=== PATIENT | female | born 1990 | race Caucasian/White ===

== ENCOUNTER 2019-12-17 07:55 | Emergency (ER) | payer OTHER ==
[~2019-12-17] VITALS: Ht 175.2 cm; Wt 95.3 kg
[2019-12-17] MEDS ORDERED: SEPTDS PO (08:36)
== END 2019-12-17 08:55 | disposition home or self-care (01) ==
LOC: ED 07:55
DX: L30.9 Dermatitis, unspecified (principal); F17.200 Nicotine dependence, unspecified, uncomplicated

== ENCOUNTER 2021-01-19 07:01 | Emergency (ER) | payer OTHER ==
[~2021-01-19] VITALS: Ht 175.2 cm; Wt 104.3 kg
[~2021-01-19 07:01] MED LIST: SEPTDS PO; VIBRAMYCIN100 MG PO
[2021-01-19] MEDS ORDERED: ZITHROMAX250 MG PO (10:08)
== END 2021-01-19 10:10 | disposition home or self-care (01) ==
LOC: ED 07:01
DX: J20.9 Acute bronchitis, unspecified (principal); Z20.822 Contact with and (suspected) exposure to COVID-19; Z79.899 Other long term (current) drug therapy

== ENCOUNTER 2022-04-04 13:40 | Emergency (ER) | payer OTHER ==
[~2022-04-04] VITALS: Ht 175.2 cm; Wt 99.8 kg
[~2022-04-04 13:40] MED LIST changes: +ZITHROMAX250 MG PO
[2022-04-04] MEDS ORDERED: LISINOPRIL10 M1 PO ×2 (14:07→14:22)
[2022-04-04] MEDS ORDERED: ZITHROMAX500 MG PO (14:22)
== END 2022-04-04 14:24 | disposition home or self-care (01) ==
LOC: ED 13:40
DX: J06.9 Acute upper respiratory infection, unspecified (principal); Z79.2 Long term (current) use of antibiotics

== ENCOUNTER 2022-05-22 07:18 | Emergency (ER) | payer OTHER ==
[~2022-05-22 07:18] MED LIST changes: +LISINOPRIL10 M1 PO; +ZITHROMAX500 MG PO
[2022-05-22 07:58] LABS: BILIRUBIN Negative (Negative); BLOOD 2+ (Negative); CLARITY Clear (Clear); COLOR Yellow (Yellow); GLUCOSE Negative (Negative); KETONE Negative (Negative); LEUKO ESTERASE Trace (Negative); NITRITE Negative (Negative); PH 5.5 (4.5-8.0); SPECIFIC GRAVITY 1.015 (1.001-1.030); UROBILINOGEN 0.2 E.U./dl (0.0-1.0)
[2022-05-22 08:08] LABS: BACTERIA 1+; MUCOUS TRACE
[2022-05-22] MEDS ORDERED: PREDNISONE50 MG PO (08:48)
[2022-05-22] MEDS ORDERED: CYCLOBENZAPRINE5 M3 PO (08:48)
== END 2022-05-22 08:54 | disposition home or self-care (01) ==
LOC: ED 07:18
PROVIDERS: Student in an Organized Health Care Education/Training Program
DX: M54.50 Low back pain, unspecified (principal); Z79.899 Other long term (current) drug therapy

== ENCOUNTER 2022-12-25 12:51 | Emergency (ER) | payer OTHER ==
[~2022-12-25] VITALS: Ht 175.2 cm; Wt 106.6 kg
[~2022-12-25 12:51] MED LIST changes: +CYCLOBENZAPRINE5 M3 PO; +PREDNISONE50 MG PO
[2022-12-25 13:38] LABS: BASO # 0.1 10*3/uL (0.0-0.1); BASO % 0.3 % (0.0-1.0); EOS # 0.2 10*3/uL (0.0-0.4); EOS % 1.2 % (1.0-4.0); HEMATOCRIT 43.9 % (37.0-47.0); LYMPH # 2.1 10*3/uL (1.3-4.4); LYMPH % 11.6 % (27.0-41.0); MEAN CORPUSCULAR HGB 29.9 pg (27.0-31.0); MEAN CORPUSCULAR HGB CONC 33.3 g/dl (33.0-37.0); MEAN PLATELET VOLUME 9.2 fl (9.6-12.3); MONO # 1.1 10*3/uL (0.1-1.0); MONO % 6.1 % (3.0-9.0); NEUT # 14.4 10*3/uL (2.3-7.9); NEUT % 80.4 % (47.0-73.0); PLATELET COUNT AUTOMATED 306 10*3/uL (130-400); RED BLOOD COUNT 4.88 10*6/uL (4.10-5.10); RED CELL DISTRI WIDTH 12.2 % (0-14.5)
[2022-12-25 14:13] LABS: ALKALINE PHOSPHATASE 73 U/L (46-116); BUN 10 mg/dl (9-23); CHLORIDE 104 mmol/L (98-107); POTASSIUM 4.1 mmol/L (3.4-5.1); SGPT/ALT 18 U/L (10-49); TOTAL PROTEIN 6.8 gm/dL (6.0-8.0)
[2022-12-25 14:24] LABS: BILIRUBIN Negative (Negative); BLOOD 2+ (Negative); CLARITY Clear (Clear); COLOR Yellow (Yellow); GLUCOSE Negative (Negative); KETONE Negative (Negative); LEUKO ESTERASE Trace (Negative); NITRITE Negative (Negative); PH 6.5 (4.5-8.0); UROBILINOGEN 0.2 E.U./dl (0.0-1.0)
[2022-12-25 14:32] LABS: BACTERIA 1+; RBC 0-2 rbc/hpf (0-2)
[2022-12-25] MEDS ORDERED: AVPAK AZITHROM250 M1 PO (14:49)
== END 2022-12-25 14:54 | disposition home or self-care (01) ==
LOC: ED 12:51
PROVIDERS: Internal Medicine; Physician Assistant
DX: J20.8 Acute bronchitis due to other specified organisms (principal); Z87.891 Personal history of nicotine dependence; Z79.899 Other long term (current) drug therapy

== ENCOUNTER 2024-03-05 12:16 | Emergency (ER) | payer OTHER ==
[~2024-03-05] VITALS: Ht 175.2 cm; Wt 99.8 kg
[~2024-03-05 12:16] MED LIST changes: +AVPAK AZITHROM250 M1 PO
[2024-03-05] MEDS ORDERED: Acetaminophen/Oxycodone 5 MG/325 MG TABLET PO ONE (12:40)
[2024-03-05] MEDS ORDERED: TRAMADOL HCL50 MG PO (14:24)
== END 2024-03-05 14:40 | disposition home or self-care (01) ==
LOC: ED 12:16
DX: S92.354A Nondisplaced fracture of fifth metatarsal bone, right foot, initial encounter for closed fracture (principal); X50.1XXA Overexertion from prolonged static or awkward postures, initial encounter; Y93.89 Activity, other specified; Y92.89 Other specified places as the place of occurrence of the external cause; Y99.8 Other external cause status

== ENCOUNTER 2024-12-09 23:04 | Emergency (ER) | payer SELFPAY ==
[~2024-12-09] VITALS: Ht 175.2 cm; Wt 95.3 kg
[~2024-12-09 23:04] MED LIST changes: +TRAMADOL HCL50 MG PO
[2024-12-10] MEDS ORDERED: Ketorolac Tromethamine 60 MG/2 ML VIAL IM ONE (00:30)
[2024-12-10] MEDS ORDERED: NAPROSYN500 MG PO (00:32)
== END 2024-12-10 00:58 | disposition home or self-care (01) ==
LOC: ED 23:04
DX: S83.92XA Sprain of unspecified site of left knee, initial encounter (principal); Z79.899 Other long term (current) drug therapy; X50.1XXA Overexertion from prolonged static or awkward postures, initial encounter; Y93.89 Activity, other specified; Y92.89 Other specified places as the place of occurrence of the external cause; Y99.8 Other external cause status

== ENCOUNTER 2025-08-07 19:55 | Inpatient (IN) | payer SELFPAY ==
[2025-08-07] VITALS (8 sets, daily range): BP systolic 125–175; BP diastolic 76–121
[~2025-08-07] VITALS: Ht 180.3 cm; Wt 100.8 kg
[~2025-08-07 19:55] MED LIST changes: +NAPROSYN500 MG PO
[2025-08-07] MEDS ORDERED: hydrALAZINE hydrochloride 20 MG/ML VIAL IV ONE (20:25)
[2025-08-07 20:34] LABS: BASO # 0.1 10*3/uL (0.0-0.1); BASO % 0.5 % (0.0-1.0); EOS # 0.1 10*3/uL (0.0-0.4); EOS % 0.7 % (1.0-4.0); MEAN CELL VOLUME 88.9 fl (81.0-99.0); MEAN CORPUSCULAR HGB 30.2 pg (27.0-31.0); MEAN PLATELET VOLUME 9.4 fl (9.6-12.3); MONO # 1.0 10*3/uL (0.1-1.0); MONO % 6.7 % (3.0-9.0); NEUT # 8.3 10*3/uL (2.3-7.9); NEUT % 58.6 % (47.0-73.0); NUCLEATED RED BLOOD CELL 0.0 % (0.0-0.0); NUCLEATED RED BLOOD CELL 0.0 10*3/uL (0.0-0.0); PLATELET COUNT AUTOMATED 273 10*3/uL (130-400); RED CELL DISTRI WIDTH 12.4 % (0-14.5)
[2025-08-07 20:46] LABS: ACT PARTIAL THROMBO TIME 25.2 SECONDS (20.0-32.1)
[2025-08-07 21:02] LABS: BUN 10 mg/dl (9-23)
[2025-08-07 22:17] LABS: BILIRUBIN Negative (Negative); BLOOD Negative (Negative); CLARITY Cloudy (Clear); COLOR Yellow (Yellow); KETONE Negative (Negative); LEUKO ESTERASE 2+ (Negative); NITRITE Negative (Negative); PH 5.5 (4.5-8.0); SPECIFIC GRAVITY 1.020 (1.001-1.030); UROBILINOGEN 0.2 E.U./dl (0.0-1.0)
[2025-08-07 22:24] LABS: BACTERIA 1+; EPITHELIAL CELLS 21-30; MUCOUS 1+; RBC 0-2 rbc/hpf (0-2); WBC 16-20 wbc/hpf (0-5)
[2025-08-07] MEDS ORDERED: Labetalol Hydrochloride 20 MG/4 ML SYR IV ONE (23:15)
[2025-08-07] MEDS ORDERED: SODIUM CHLORIDE 0.9% 1,000 ML IV SCH (23:40)
[2025-08-08] VITALS (12 sets, daily range): BP systolic 111–160; BP diastolic 64–94
[2025-08-08] MEDS ORDERED: POTASSIUM CHLORIDE IN WATER 100 ML IV SCH
[2025-08-08] MEDS ORDERED: ACETAMINOPHEN 325 MG TAB PO PRN (06:20)
[2025-08-08] MEDS ORDERED: LISINOPRIL 10 MG TAB PO SCH (10:00)
[2025-08-08] MEDS ORDERED: LISINOPRIL 2.5 MG TAB PO SCH (15:40)
[2025-08-08 16:00] LABS: BASO # 0.0 10*3/uL (0.0-0.1); BASO % 0.5 % (0.0-1.0); EOS # 0.1 10*3/uL (0.0-0.4); EOS % 1.9 % (1.0-4.0); MEAN CELL VOLUME 90.6 fl (81.0-99.0); MEAN CORPUSCULAR HGB 30.8 pg (27.0-31.0); MEAN PLATELET VOLUME 9.3 fl (9.6-12.3); MONO # 0.7 10*3/uL (0.1-1.0); MONO % 8.7 % (3.0-9.0); NEUT # 4.0 10*3/uL (2.3-7.9); NEUT % 53.7 % (47.0-73.0); NUCLEATED RED BLOOD CELL 0.0 % (0.0-0.0); NUCLEATED RED BLOOD CELL 0.0 10*3/uL (0.0-0.0); PLATELET COUNT AUTOMATED 204 10*3/uL (130-400); RED CELL DISTRI WIDTH 12.7 % (0-14.5)
[2025-08-08 16:30] LABS: BUN 14 mg/dl (9-23)
[2025-08-09 05:34] VITALS: BP 149/84
[2025-08-09 06:28] LABS: BASO # 0.0 10*3/uL (0.0-0.1); BASO % 0.6 % (0.0-1.0); EOS # 0.1 10*3/uL (0.0-0.4); EOS % 1.9 % (1.0-4.0); MEAN CELL VOLUME 90.9 fl (81.0-99.0); MEAN CORPUSCULAR HGB 30.1 pg (27.0-31.0); MEAN PLATELET VOLUME 9.9 fl (9.6-12.3); MONO # 0.5 10*3/uL (0.1-1.0); MONO % 7.6 % (3.0-9.0); NEUT # 3.6 10*3/uL (2.3-7.9); NEUT % 53.3 % (47.0-73.0); NUCLEATED RED BLOOD CELL 0.0 % (0.0-0.0); NUCLEATED RED BLOOD CELL 0.0 10*3/uL (0.0-0.0); PLATELET COUNT AUTOMATED 195 10*3/uL (130-400); RED CELL DISTRI WIDTH 12.4 % (0-14.5)
[2025-08-09 06:47] LABS: BUN 9 mg/dl (9-23); LDL CHOLESTEROL 101 mg/dL (9-159); SGPT/ALT 20 U/L (5-49)
[2025-08-09 08:00] VITALS: BP 148/92
[2025-08-09 12:00] VITALS: BP 136/90
[2025-08-09] MEDS ORDERED: LISINOPRIL10 M1 PO (14:56)
== END 2025-08-09 16:44 | disposition home or self-care (01) | DRG 872 ==
LOC: ED 19:55 → EDHOLD 23:50 → 5E 08-08 03:45
PROVIDERS: Internal Medicine; ADMIT Internal Medicine; ATTEND Internal Medicine
DX: A41.9 Sepsis, unspecified organism (principal); N39.0 Urinary tract infection, site not specified; I16.1 Hypertensive emergency; E87.6 Hypokalemia; R73.9 Hyperglycemia, unspecified; F17.210 Nicotine dependence, cigarettes, uncomplicated